=== PATIENT | female | born 1970 | race Caucasian/White ===

== ENCOUNTER 2016-04-06 08:32 | Inpatient (IN) | payer OTHER ==
[~2016-04-06] VITALS: Ht 165.1 cm; Wt 88.6 kg
--- NOTE | 2016-04-06 09:04 | EKG ---
[facility] [address] [place] [address] Test Date: 2016-04-06 Test Time: 08:46:21 Pat Name: SU PURCELL Department: Room: Gender: F Labor Specialist: : 1970 Requested By: JH NUNEZ Order Number: [id number] Reading MD: Makenzie Esteves Measurements Intervals [place] Rate: 76 P: 41 [place]: 178 QRS: -13 QRSD: 116 T: 10 QT: 450 QTc: 511 Interpretive Statements SINUS RHYTHM LEFTWARD AXIS QRS(T) CONTOUR ABNORMALITY CONSIDER ANTEROSEPTAL MYOCARDIAL DAMAGE PROLONGED QT RI6.01 Unconfirmed report No previous ECG available for comparison Electronically Signed On 04-08-2016 20:15:45 MD ALLERGY IMMUNOLOGY by Makenzie Esteves
--- NOTE | 2016-04-06 09:05 | PHYS DOC ---
Adult General Chief Complaint Chief Complaint: CHEST PAIN-CARDIAC NATURE HPI HPI Patient is a 45 year old female presents emergency room via EMS from a local [facility] facility with a complaint of central chest pain that does not radiate. Patient reports his pain began at approximately 6:30 this morning. Patient states that she initially got up this morning and was having no problems. She breakfast and at approximately 6:15, she threw up. She states that she went back to her cell to lay down and began experiencing the chest pain. She denies shortness of breath. She denies any provocative or palliative maneuvers. She denies palpitations, exertional dyspnea, orthopnea or PND. Patient denies any history of cardiac problems. She denies any history of lung disease. She does have a history of hypertension. She does not have a history of hypercholesterolemia or diabetes. Patient also has a history of seizures when she takes multiple seizure medications. Patient also has a history of problems with hypokalemia. She is currently taking both Lasix and Maxide for management of blood pressure. Patient denies any preceding illnesses before the episode this morning. Patient states that she typically feels this way for potassium level gets low. Patient's family history is negative for cardiac disease at or before the age of 50. She has no personal history of PEs or DVTs/coagulopathies. She denies any known family history of the same. According to EMS, patient had a "seizure" in route to this facility. She did receive some intranasal Versed. There was no reported loss of bowel or bladder control. There is no reported secondary injuries to the "seizure". There is no report of a post ictal state after this "seizure". Review of Systems Review of Systems Constitutional: Denies fever or chills [] Eyes: Denies change in visual acuity, redness, or eye pain [] HENT: Denies nasal congestion or sore throat [] Respiratory: Denies cough or shortness of breath [] Cardiovascular: No additional information not addressed in HPI [] GI: Denies abdominal pain, nausea, vomiting, bloody stools or diarrhea [] : Denies dysuria or hematuria [] Musculoskeletal: Denies back pain or joint pain [] Integument: Denies rash or skin lesions [] Neurologic: Denies headache, focal weakness or sensory changes [] Endocrine: Denies polyuria or polydipsia [] Current Medications Current Medications Current Medications Medications (Trade) Dose Ordered Sig/Alexandra Start Time Stop Time Status Last Admin Dose Admin Acetaminophen (Tylenol) 650 mg 1X ONCE 04/06/16 13:15 04/06/16 13:16 DC 04/06/16 14:13 650 MG Oxcarbazepine (Trileptal) 300 mg 1X ONCE 04/06/16 13:15 04/06/16 13:16 DC 04/06/16 14:10 300 MG Potassium Chloride (Klor-Con) 40 meq 1X ONCE 04/06/16 12:45 04/06/16 12:46 DC Allergies Allergies Allergies Coded Allergies Type Severity Reaction Last Updated Verified horseradish Allergy Severe Anaphylaxis 04/06/16 Yes mushroom Allergy Severe Anaphylaxis 04/06/16 Yes Physical Exam Physical Exam Constitutional: Well developed, well nourished, no acute distress, non-toxic appearance. Patient reports she is currently pain-free. HENT: Normocephalic, atraumatic, bilateral external ears normal, oropharynx moist, no oral exudates, nose normal. [] Eyes: PERRLA, EOMI, conjunctiva normal, no discharge. [] Neck: Normal range of motion, no tenderness, supple, no stridor. [] Cardiovascular:Heart rate 82 with regular rhythm, no murmur there is no JVD or peripheral edema. PMI is not displaced. Lungs & Thorax: There is no evidence of respiratory distress or respiratory fatigue. Lung sounds are clear to auscultation bilaterally. Abdomen: Abdomen is soft and nondistended. There are normoactive bowel sounds in all 4 quadrants. There is no palpable defect to the abdominal wall or pulsatile mass. There is no focal area of tenderness. There is no rebound or guarding. Skin: Warm, dry, no erythema, no rash. [] Back: No tenderness, no CVA tenderness. [] Extremities: No tenderness, no cyanosis, no clubbing, ROM intact, no edema. [] Neurologic: Alert and oriented X 3, normal motor function, normal sensory function, no focal deficits noted. [] Psychologic: Affect normal, judgement normal, mood normal. [] Current Patient Data Vital Signs Vital Signs Date Time Temp Pulse Resp B/P Pulse Ox O2 Delivery O2 Flow Rate FiO2 04/06/16 10:15 66 21 107/65 96 Room Air 04/06/16 08:42 98.1 98.1 Lab Values Laboratory Tests Test 04/06/16 09:55 04/06/16 12:20 04/06/16 13:55 White Blood Count 8.0x10^3/uL (4.0-11.0) Red Blood Count 3.50x10^6/uL (3.50-5.40) Hemoglobin 11.4g/dL (12.0-15.5) L Hematocrit 31.8% (36.0-47.0) L Mean Corpuscular Volume 91fL (79-100) Mean Corpuscular Hemoglobin 33pg (25-35) Mean Corpuscular Hemoglobin Concent 36g/dL (31-37) Red Cell Distribution Width 13.3% (11.5-14.5) Platelet Count 288x10^3/uL (140-400) Neutrophils (%) (Auto) 72% (31-73) Lymphocytes (%) (Auto) 22% (24-48) L Monocytes (%) (Auto) 6% (0-9) Eosinophils (%) (Auto) 1% (0-3) Basophils (%) (Auto) 0% (0-3) Neutrophils # (Auto) 5.7x10^3uL (1.8-7.7) Lymphocytes # (Auto) 1.7x10^3/uL (1.0-4.8) Monocytes # (Auto) 0.5x10^3/uL (0.0-1.1) Eosinophils # (Auto) 0.0x10^3/uL (0.0-0.7) Basophils # (Auto) 0.0x10^3/uL (0.0-0.2) Prothrombin Time 12.5SEC (11.7-14.0) Prothrombin Time INR 1.0 (0.8-1.1) Sodium Level 134mmol/L (136-145) L 131mmol/L (136-145) L Potassium Level 2.7mmol/L (3.5-5.1) *L 2.7mmol/L (3.5-5.1) *L Chloride Level 95mmol/L (98-107) L 94mmol/L (98-107) L Carbon Dioxide Level 29mmol/L (21-32) 27mmol/L (21-32) Anion Gap 10 (6-14) 16mmol/L (6-14) H 10 (6-14) Blood Urea Nitrogen 13mg/dL (7-20) 14mg/dL (7-20) Creatinine 0.7mg/dL (0.6-1.0) 0.7mg/dL (0.6-1.0) Estimated GFR (Cockcroft-Gault) 90.9 90.9 Glucose Level 94mg/dL (70-99) 108mg/dL (70-99) H 112mg/dL (70-99) H Calcium Level 8.6mg/dL (8.5-10.1) 8.7mg/dL (8.5-10.1) Magnesium Level 1.9mg/dL (1.8-2.4) Total Bilirubin 0.2mg/dL (0.2-1.0) Direct Bilirubin 0.1mg/dL (0.0-0.2) Aspartate Amino Transferase (AST) 14U/L (15-37) L Alanine Aminotransferase (ALT) 21U/L (14-59) Alkaline Phosphatase 126U/L (46-116) H Creatine Kinase 63U/L (26-192) Creatine Kinase MB (Mass) < 0.5ng/mL (0.0-3.6) Creatine Kinase MB Relative Index % (0-4) Troponin I Quantitative < 0.017ng/mL (0.000-0.055) CP-Wbx-K-Type Natriuretic Peptide 111pg/mL (0-124) Total Protein 6.0g/dL (6.4-8.2) L Albumin 3.6g/dL (3.4-5.0) Lipase 91U/L (73-393) POC Hemoglobin 10.5g/dL (12-15) L POC Hematocrit 31% (36-40) L POC Sodium 128mmol/L (135-145) L POC Potassium 2.5mmol/L (3.5-5.0) L POC Chloride 90mmol/L (98-110) L POC Total CO2 25mmol/L (23-32) POC Blood Urea Nitrogen 12mg/dL (8-26) POC Creatinine 0.7mg/dL (0.5-1.4) POC Ionized Calcium (Trace) 1.10mmol/L (1.13-1.32) L Laboratory Tests 04/06/16 09:55 Laboratory Tests 04/06/16 09:55 04/06/16 12:20 04/06/16 13:55 EKG EKG Twelve-lead EKG was performed at 0 846 that shows a normal sinus rhythm with a heart rate of 76 bpm. [place] interval is 178 ms with a QRS duration of 160 ms and a QT duration of 511 ms. There is no [address] elevation or depression. There is no bundle-branch block. Radiology/Procedures Radiology/Procedures Portable AP chest was performed with adequate technique and interpreted by the radiologist. There is no evidence of acute thoracic process. There is no evidence of pulmonary vascular congestion, pneumonia or pneumothorax. Course & Med Decision Making Course & Med Decision Making Patient's overall care and clinical decision was delayed in the emergency department as pharmacy staff did not dispense 80 mEq of potassium as a original order. After patient received 2 separate doses of 40 mEq of potassium by mouth, her potassium level was rechecked by the lab. It remained at 2.7. Patient has had an otherwise uncomplicated stay here in the emergency department. She's had no other episodes or complaints of chest pain. She's been maintained on the property assessment monitor and has not displayed any cardiac conduction aberrancy. She's had no episodes of vomiting. Case was staffed with Dr. Landis. He agrees, at this time, that patient should be admitted. He states that he would staff this case with the hospitalist and orders will be written to admit the patient. Dragon Disclaimer Dragon Disclaimer This electronic medical record was generated, in whole or in part, using a voice recognition dictation system. Departure Departure Impression: Primary Impression: Hypokalemia Additional Impression: Chest pain Disposition: ADMITTED INPATIENT Admitting Physician: Other (Dr Bender) Condition: STABLE Patient Instructions: Chest Pain (Nonspecific), [id number], Hypokalemia-Brief Additional Instructions: 1. Chest x-ray, EKG and cardiac enzymes today are normal. Potassium level was 2.7. He received 80 mEq of potassium here and your daily potassium dosage will be increased for the next 4 days. 2. Evaluating your medications, specifically Lasix and Maxide may be needed as potassium is lost with the Lasix. 3. Follow-up with your current primary care provider early next week for reevaluation and potassium level recheck. Problem Qualifiers JH NUNEZ Apr 06, 2016 09:05
--- NOTE | 2016-04-06 09:31 | RAD ---
Portable chest, 04/06/2016: History: Chest pain The heart size and pulmonary vascularity are normal. The lungs are clear. There is no evidence of pleural fluid. Moderate spurring is present in the spine. IMPRESSION: No acute cardiopulmonary abnormality is detected.
[2016-04-06 10:22] LABS: BASO % 0 % (0-3); EOS % 1 % (0-3); HEMATOCRIT 31.8 % (36.0-47.0); HEMOGLOBIN 11.4 g/dL (12.0-15.5); LYMPH # 1.7 x10^3/uL (1.0-4.8); LYMPH % 22 % (24-48); MEAN CORPUSCULAR HEMOGLOBIN 33 pg (25-35); MEAN CORPUSCULAR HGB CONC 36 g/dL (31-37); MEAN CORPUSCULAR VOLUME 91 fL (79-100); MONO % 6 % (0-9); NEUT % 72 % (31-73); PLATELET COUNT 288 x10^3/uL (140-400); RED CELL DISTRIBUTION WIDTH 13.3 % (11.5-14.5)
[2016-04-06 10:38] LABS: PROTHROMBIN TIME PATIENT 12.5 SEC (11.7-14.0)
[2016-04-06 10:46] LABS: ALBUMIN 3.6 g/dL (3.4-5.0); CALCIUM 8.6 mg/dL (8.5-10.1); CREATININE 0.7 mg/dL (0.6-1.0); DIRECT BILIRUBIN 0.1 mg/dL (0.0-0.2); GFR 90.9; MAGNESIUM 1.9 mg/dL (1.8-2.4); TOTAL BILIRUBIN 0.2 mg/dL (0.2-1.0)
[2016-04-06 10:48] LABS: POTASSIUM 2.7 mmol/L (3.5-5.1)
[2016-04-06 10:49] LABS: CKMB MASS < 0.5 ng/mL (0.0-3.6); CREATINE KINASE 63 U/L (26-192)
[2016-04-06] MEDS: POTASSIUM CHLORIDE 20 MEQ TABLET.ER. PO SCH ×2 (11:38→12:42)
--- NOTE | 2016-04-06 11:43 | ACF ---
Admission Forms Criteria HYPONATREMIA; HYPERNATREMIA; HYPOKALEMIA; HYPERKALEMIA; HYPOCALCEMIA; HYPERCALCEMIA Clinical Indications for Inpatient Care (Place 'X' for any and all applicable criteria): Ongoing inpatient care may be indicated for ANY ONE of the following [G](1)(2)(3 )(5): [ ]I. Hyponatremia with ANY ONE of the following: [ ]a) Sodium less than 130 mEq/L (mmol/L) (new) (6)(22) [ ]b) Sodium less than 135 mEq/L (mmol/L) with ANY ONE of the following: [ ]i) Severe medical etiology requiring inpatient management (eg, heart failure, hypovolemia) [ ]ii) Altered mental status [ ]iii) Seizures [ ]II. Hypernatremia with ANY ONE of the following: [ ]a) Sodium greater than 155 mEq/L (mmol/L) [ ]b) Sodium greater than 150 mEq/L (mmol/L) with ANY ONE of the following: [ ] i) Altered mental status [ ]ii) Seizures [ ]iii) Severe medical etiology (eg, hypovolemia, diabetes insipidus) [ ]iv) Severe weakness [ ]v) Severe medical etiology (eg, hemolysis, infection, drug overdose) [X]III. Hypokalemia with ANY ONE of the following: [ ]a) Potassium less than 2.5 mEq/L (mmol/L) despite outpatient and emergency treatment [X]b) Potassium less than 3.0 mEq/L (mmol/L) with ANY ONE of the following: [ ]i) Weakness [ ]ii) Cardiac abnormality (eg, arrhythmia, conduction disturbance) [ ]iii) Cardiac ischemia [ ]iv) Ileus [ ]v) Ongoing medical cause requiring inpatient management. ( e.g., acute renal wasting, SIADH) [X]vi) Other severe symptoms [ ] IV. Hyperkalemia with ANY ONE of the following: [ ]a) Potassium greater than 6.5 mEq/L (mmol/L) [ ]b) Potassium greater than 5 mEq/L (mmol/L) with ANY ONE of the following: [ ]i) Severe ECG findings [H] [ ]ii) Acute worsening of renal failure (creatinine greater than 2.5 mg/dL (221 micromoles/L) or significant elevation for age and size) [ ] V. Hypocalcemia with ANY ONE of the following: [ ]a) Calcium less than 7 mg/dL (1.75 mmol/L) despite outpatient and emergency treatment(19) [ ]b) Calcium less than 8 mg/dL (2 mmol/L) with significant symptoms or findings; examples include: [ ]i) Cardiac abnormality (eg, arrhythmia or conduction disturbance) [ ]ii) Altered mental status [ ]iii) Seizures [ ]iv) Breathing difficulty [ ]v) Muscle spasms [ ]. Hypercalcemia with ANY ONE of the following: [ ]a) Calcium greater than 14 mg/dL (3.5 mmol/L) [ ]b) Calcium greater than 12 mg/dL (3 mmol/L) with ANY ONE of the following: [ ]i) Significant dehydration or hypovolemia as indicated by ANY ONE of the following(2): [ ]1. Clinically significant dehydration as indicated by ANY ONE of the following: [ ]A. Acute loss of weight from baseline (5% of body weight in adults, 9% in pediatric patients) [ ]B. Hemodynamic instability [ ]C. Acute renal failure [ ]D. Serum sodium greater than 150 mEq/L (mmol/L) [ ]2) Dehydration that is persistent indicated by ALL of the following: [ ]A. Oral rehydration therapy not tolerated or insufficient to adequately correct dehydration [ ]B. Appropriate intravenous treatment (eg, fluids ) does not readily correct dehydration ie, after 12 to 24 hours of treatment) [ ]ii) Significant symptoms or findings; examples include: [ ]1) Altered mental status [ ]2) Cardiac abnormality (eg, arrhythmia, conduction disturbance) [ ]3) Cardiac abnormality (eg, arrhythmia, conduction disturbance) The original [facility] content created by [facility] has been revised. The portions of the content which have been revised are identified through the use of italic text or in bold, and [facility] has neither reviewed nor approved the modified material. All other unmodified content is copyright [facility] [employer] Please see references footnoted in the original [facility] [employer] edition 2016 Admission Criteria Met?: Yes POLLO HERNANDEZ Apr 06, 2016 11:42 TORIBIO PAZ MD Apr 09, 2016 12:46
[2016-04-06] MEDS ORDERED: FURO20TA3 PO (11:48)
[2016-04-06] MEDS ORDERED: MONT10TA9 PO (11:48)
[2016-04-06] MEDS ORDERED: OXCA300T PO (11:49)
[2016-04-06] MEDS ORDERED: POTA20TA4 PO (11:51)
[2016-04-06] MEDS ORDERED: [UNRECOGNIZED DRUG - CODE] (11:57)
[2016-04-06] MEDS ORDERED: Phenytoin (11:59)
[2016-04-06 12:26] LABS: POTASSIUM ISTAT 2.5 mmol/L (3.5-5.0)
[2016-04-06] MEDS ORDERED: POTASSIUM CHLORIDE 20 MEQ TABLET.ER. PO ONE ×2 (12:45→22:00)
[2016-04-06] MEDS ORDERED: OXCARBAZEPINE 300 MG TABLET. PO ONE (13:15)
[2016-04-06] MEDS ORDERED: ACETAMINOPHEN 325 MG TABLET. PO ONE (13:15)
[2016-04-06 14:14] LABS: CALCIUM 8.7 mg/dL (8.5-10.1); CREATININE 0.7 mg/dL (0.6-1.0); GFR 90.9
[2016-04-06 14:19] LABS: POTASSIUM 2.7 mmol/L (3.5-5.1)
[2016-04-06 17:43] VITALS: BP 103/68
[2016-04-06 17:44] VITALS: BP 103/68
[2016-04-06] MEDS ORDERED: TOPI100T90 PO (17:57)
[2016-04-06] MEDS ORDERED: TRIA1CAP3 PO (17:57)
[2016-04-06] MEDS ORDERED: PHEN100C PO (17:57)
[2016-04-06 19:30] VITALS: BP 101/69
[2016-04-06] MEDS: TRIAMTERENE/HCTZ 37.5/25MG TABLET. PO SCH (21:00)
[2016-04-06] MEDS: TOPIRAMATE 100 MG TABLET. PO SCH (21:17)
[2016-04-06] MEDS: OXCARBAZEPINE 300 MG TABLET. PO SCH (21:18)
[2016-04-06] MEDS: MONTELUKAST SODIUM 10 MG TABLET. PO SCH (21:18)
[2016-04-06] MEDS: PHENYTOIN SODIUM EXTENDED 100 MG CAPSULE PO SCH (21:18)
[2016-04-06] MEDS: POTASSIUM CHLORIDE 10MEQ 100 ML IV SCH (22:19)
[2016-04-06 23:35] VITALS: BP 97/63
--- NOTE | 2016-04-06 23:58 | HP ---
ADMIT DATE: 04/06/2016 CHIEF COMPLAINT: Chest pain, abdominal pain, nausea, vomiting. HISTORY OF PRESENT ILLNESS: The patient is a 45-year-old inmate at [facility], who presented to the Emergency Room via EMS after complaining of central chest pain as well as vomiting x 1. The patient relates that she got up this morning, ate breakfast, but when she came back to herself, started having chest pain, vomited x 1 and felt better afterwards. She denied any shortness of breath, radiation of the chest pain at that time or any other issues. She states that her chest pain essentially started in her lower right chest just laterally to the sternal border, traversed the sternum and zigzag back to her upper right chest and back behind her shoulder blade. At times, she also had tingling in the medial 3 fingers of both hands. This spontaneously resolved. Symptoms currently are controlled. She denies any ongoing nausea, vomiting, diaphoresis, fevers, chills, or other symptoms. In the EMS, she had a reported seizure for which she received intranasal Versed. No associated symptoms were noted including no postictal state, no loss of bowel or bladder control. The patient relates that she has a longstanding history of seizures, which have been getting rather frequent ever since she has been incarcerated for the past 11 months. She reports about one seizure a month, whereas prior on the same drug regimen, she had been seizure-free for 6 years. In the Emergency Room, she was found with a potassium of 2.7. She is on both Lasix as well as hydrochlorothiazide for lower extremity swelling, worse on the right than on the left. The physician at custodial had actually cut her Lasix dose in half last week. PAST MEDICAL HISTORY: Seizure disorder and hypertension. FAMILY HISTORY: Positive for CAD. Father at age 58. SOCIAL HISTORY: Has been in custodial for the past 11 months. No toxic habits. Never smoked. ALLERGIES: No known drug allergies. MEDICATIONS: MAR reconciled with home medications. REVIEW OF SYSTEMS: Positive as per HPI. Rest of organ system review is completely negative. PHYSICAL EXAMINATION: VITAL SIGNS: From today show a blood pressure of 101/69, heart rate at 63, respiratory rate at 18. She is afebrile. GENERAL: This is an obese 45-year-old woman, alert and oriented, in no acute distress. HEENT: Shows no scleral icterus. NECK: Supple without any lymphadenopathy or JVD. LUNGS: Clear to auscultation bilaterally. HEART: Has regular rate and rhythm without any murmurs. ABDOMEN: Has positive bowel sounds. Mild tenderness to palpation in the right upper quadrant and subxiphoid/epigastric area. EXTREMITIES: Show 1+ edema in the right, none in the left. Compression stockings on both legs. SKIN: Warm, soft and dry without any rash. LABORATORY DATA: CBC from today shows a WBC of 8.0, hemoglobin of 11.4, platelets of 288. Chemistries with an initial BUN and creatinine of 13 and 0.7, has been stable on repeat; potassium at 2.7 with essentially no improvement after 80 mEq of potassium in the ER; sodium at 131. LFTs within normal limits, say for minimally elevated alkaline phosphatase at 126, magnesium is at 1.9, negative troponins. RADIOGRAPHIC STUDIES: Chest x-ray shows normal heart and pulmonary vascularity. Lungs are clear. ASSESSMENT AND PLAN: The patient is a 45-year-old woman who is admitted with nausea, vomiting, abdominal pain as well as chest pain and low potassium. I suspect actually she may have gallbladder disease. Nevertheless, given the chest pain, we will rule out acute coronary syndrome with serial enzymes and EKGs. We will obtain ultrasound of the liver in the morning to evaluate for stones. May need HIDA scan down the road. Potassium is indeed critical. We will hold her Lasix for the time being. We will replete potassium aggressively p.o. Her magnesium interestingly is perfectly normal. Continue to monitor her electrolytes. The patient does have a history of seizure disorder and is on dual regimen. We will obtain phenytoin level. Suspect the increased frequency of her seizure reports may be more psychosomatic as she reports seizure activity increases with loud noise and bright lights. TORIBIO PAZ MD DR: MATTHIAS/sonja JOB#: [id number] / [id number] PATI
[2016-04-07] MEDS: POTASSIUM CHLORIDE 10MEQ 100 ML IV SCH ×3 (01:55→04:18)
[2016-04-07 03:30] VITALS: BP 109/71
[2016-04-07 05:36] LABS: CALCIUM 8.3 mg/dL (8.5-10.1); CREATININE 0.7 mg/dL (0.6-1.0); GFR 90.9; POTASSIUM 3.5 mmol/L (3.5-5.1)
[2016-04-07 07:00] VITALS: BP 97/58
[2016-04-07] MEDS: ACETAMINOPHEN 325 MG TABLET. PO PRN ×2 (07:45→17:38)
[2016-04-07] MEDS: POTASSIUM CHLORIDE 20 MEQ TABLET.ER. PO SCH (07:46)
[2016-04-07] MEDS: TOPIRAMATE 100 MG TABLET. PO SCH ×2 (07:46→20:38)
[2016-04-07] MEDS: TRIAMTERENE/HCTZ 37.5/25MG TABLET. PO SCH ×2 (07:47→20:42)
[2016-04-07] MEDS: OXCARBAZEPINE 300 MG TABLET. PO SCH ×2 (07:47→20:37)
--- NOTE | 2016-04-07 08:10 | RAD ---
Right upper quadrant abdominal ultrasound, 04/07/2016: History: Right upper quadrant pain The gallbladder is within normal limits in size. It contains a single 2.6 cm calculus. The gallbladder devi are not thickened. The patient was reportedly tender to transducer pressure over the gallbladder. No bile duct dilatation is seen. The liver is enlarged measuring 21 cm in craniocaudad extent. No hepatic mass is seen. The visualized portions of the pancreas and right kidney are unremarkable. IMPRESSION: 1. Cholelithiasis with a positive sonographic Mata's sign. 2. Hepatomegaly
[2016-04-07] MEDS ORDERED: FUROSEMIDE 20 MG TABLET PO SCH (09:00)
[2016-04-07 11:00] VITALS: BP 97/60
[2016-04-07 15:00] VITALS: BP 101/65
--- NOTE | 2016-04-07 16:14 | EKG ---
[facility] [address] [place] [address] Test Date: 2016-04-07 Test Time: 16:06:50 Pat Name: SU PURCELL Department: Room: [facility] Gender: F Intranet Specialist: : 1970 Requested By: TORIBIO PAZ Order Number: [id number] Reading MD: Measurements Intervals [place] Rate: 59 P: 42 [place]: 164 QRS: -4 QRSD: 98 T: 13 QT: 462 QTc: 462 Interpretive Statements SINUS RHYTHM LEFTWARD AXIS OTHERWISE NORMAL ECG RI6.01 Unconfirmed report No previous ECG available for comparison
--- NOTE | 2016-04-07 17:40 | PDOC ---
PROGRESS NOTES Chief Complaint Chief Complaint Chest pain Epigastric pain ASSESSMENT AND PLAN: 1. CP: noncardiac. with neg W/U 2. epigastric/RUQ pain: US with cholelithiasis, + Mata's. surg consult 4. Hypokalemia: resolving. monitor closely, replete as indicated. hold lasix for now Vitals Vitals Vital Signs Date Time Temp Pulse Resp B/P Pulse Ox O2 Delivery O2 Flow Rate FiO2 04/07/16 15:00 98.1 61 18 101/65 98 Room Air 98.1 Physical Exam General: Alert, Oriented X3, Cooperative Heart: Regular rate Lungs: Clear Abdomen: Normal bowel sounds, Other (RUQ/epigastric TTP) Extremities: No clubbing, Other (edema L LE, chronic) Labs LABS Laboratory Tests Test 04/07/16 05:00 Sodium Level 134mmol/L (136-145) Potassium Level 3.5mmol/L (3.5-5.1) Chloride Level 98mmol/L (98-107) Carbon Dioxide Level 27mmol/L (21-32) Anion Gap 9 (6-14) Blood Urea Nitrogen 12mg/dL (7-20) Creatinine 0.7mg/dL (0.6-1.0) Estimated GFR (Cockcroft-Gault) 90.9 Glucose Level 81mg/dL (70-99) Calcium Level 8.3mg/dL (8.5-10.1) Troponin I Quantitative < 0.017ng/mL (0.000-0.055) Phenytoin (Dilantin) Level 6.6mcg/mL (10.0-20.0) Phenytoin Last Dose Date 04/06/16 Phenytoin Last Dose Time 2100 Review of Systems Review of Systems episode of "CP" this PM, resolved. tolerating PO Assessment and Plan Assessmemt and Plan Problems: Comment Review of Relevant I have reviewed the following items michaela (where applicable) has been applied. Labs Laboratory Tests Test 04/06/16 09:55 04/06/16 12:20 04/06/16 13:55 04/06/16 17:20 White Blood Count 8.0x10^3/uL (4.0-11.0) Red Blood Count 3.50x10^6/uL (3.50-5.40) Hemoglobin 11.4g/dL (12.0-15.5) Hematocrit 31.8% (36.0-47.0) Mean Corpuscular Volume 91fL (79-100) Mean Corpuscular Hemoglobin 33pg (25-35) Mean Corpuscular Hemoglobin Concent 36g/dL (31-37) Red Cell Distribution Width 13.3% (11.5-14.5) Platelet Count 288x10^3/uL (140-400) Neutrophils (%) (Auto) 72% (31-73) Lymphocytes (%) (Auto) 22% (24-48) Monocytes (%) (Auto) 6% (0-9) Eosinophils (%) (Auto) 1% (0-3) Basophils (%) (Auto) 0% (0-3) Neutrophils # (Auto) 5.7x10^3uL (1.8-7.7) Lymphocytes # (Auto) 1.7x10^3/uL (1.0-4.8) Monocytes # (Auto) 0.5x10^3/uL (0.0-1.1) Eosinophils # (Auto) 0.0x10^3/uL (0.0-0.7) Basophils # (Auto) 0.0x10^3/uL (0.0-0.2) Prothrombin Time 12.5SEC (11.7-14.0) Prothromb Time International Ratio 1.0 (0.8-1.1) Sodium Level 134mmol/L (136-145) 131mmol/L (136-145) Potassium Level 2.7mmol/L (3.5-5.1) 2.7mmol/L (3.5-5.1) Chloride Level 95mmol/L (98-107) 94mmol/L (98-107) Carbon Dioxide Level 29mmol/L (21-32) 27mmol/L (21-32) Anion Gap 10 (6-14) 16mmol/L (6-14) 10 (6-14) Blood Urea Nitrogen 13mg/dL (7-20) 14mg/dL (7-20) Creatinine 0.7mg/dL (0.6-1.0) 0.7mg/dL (0.6-1.0) Estimated GFR (Cockcroft-Gault) 90.9 90.9 Glucose Level 94mg/dL (70-99) 108mg/dL (70-99) 112mg/dL (70-99) Calcium Level 8.6mg/dL (8.5-10.1) 8.7mg/dL (8.5-10.1) Magnesium Level 1.9mg/dL (1.8-2.4) Total Bilirubin 0.2mg/dL (0.2-1.0) Direct Bilirubin 0.1mg/dL (0.0-0.2) Aspartate Amino Transf (AST/SGOT) 14U/L (15-37) Alanine Aminotransferase (ALT/SGPT) 21U/L (14-59) Alkaline Phosphatase 126U/L (46-116) Creatine Kinase 63U/L (26-192) Creatine Kinase MB (Mass) < 0.5ng/mL (0.0-3.6) Creatine Kinase MB Relative Index % (0-4) Troponin I Quantitative < 0.017ng/mL (0.000-0.055) QA-Nks-R-Type Natriuretic Peptide 111pg/mL (0-124) Total Protein 6.0g/dL (6.4-8.2) Albumin 3.6g/dL (3.4-5.0) Lipase 91U/L (73-393) Bedside Hemoglobin 10.5g/dL (12-15) Bedside Hematocrit 31% (36-40) Bedside Sodium 128mmol/L (135-145) Bedside Potassium 2.5mmol/L (3.5-5.0) Bedside Chloride 90mmol/L (98-110) Bedside Total CO2 25mmol/L (23-32) Bedside Blood Urea Nitrogen 12mg/dL (8-26) Bedside Creatinine 0.7mg/dL (0.5-1.4) Bedside Ionized Calcium (Trace) 1.10mmol/L (1.13-1.32) Nasal Screen MRSA (PCR) Negative (Negative) Test 04/07/16 05:00 Sodium Level 134mmol/L (136-145) Potassium Level 3.5mmol/L (3.5-5.1) Chloride Level 98mmol/L (98-107) Carbon Dioxide Level 27mmol/L (21-32) Anion Gap 9 (6-14) Blood Urea Nitrogen 12mg/dL (7-20) Creatinine 0.7mg/dL (0.6-1.0) Estimated GFR (Cockcroft-Gault) 90.9 Glucose Level 81mg/dL (70-99) Calcium Level 8.3mg/dL (8.5-10.1) Troponin I Quantitative < 0.017ng/mL (0.000-0.055) Phenytoin (Dilantin) Level 6.6mcg/mL (10.0-20.0) Phenytoin Last Dose Date 04/06/16 Phenytoin Last Dose Time 2100 Laboratory Tests Test 04/07/16 05:00 Sodium Level 134mmol/L (136-145) Potassium Level 3.5mmol/L (3.5-5.1) Chloride Level 98mmol/L (98-107) Carbon Dioxide Level 27mmol/L (21-32) Anion Gap 9 (6-14) Blood Urea Nitrogen 12mg/dL (7-20) Creatinine 0.7mg/dL (0.6-1.0) Estimated GFR (Cockcroft-Gault) 90.9 Glucose Level 81mg/dL (70-99) Calcium Level 8.3mg/dL (8.5-10.1) Troponin I Quantitative < 0.017ng/mL (0.000-0.055) Phenytoin (Dilantin) Level 6.6mcg/mL (10.0-20.0) Phenytoin Last Dose Date 04/06/16 Phenytoin Last Dose Time 2100 Medications Current Medications Potassium Chloride (Klor-Con) 40 meq Q1H PO Last administered on 04/06/16 12: 42; Start 04/06/16 at 11:30; Stop 04/06/16 at 12:31; Status DC Potassium Chloride (Klor-Con) 40 meq 1X ONCE PO ; Start 04/06/16 at 12:45; Stop 04/06/16 at 12:46; Status DC Oxcarbazepine (Trileptal) 300 mg 1X ONCE PO Last administered on 04/06/16 14: 10; Start 04/06/16 at 13:15; Stop 04/06/16 at 13:16; Status DC Acetaminophen (Tylenol) 650 mg 1X ONCE PO Last administered on 04/06/16 14:13 ; Start 04/06/16 at 13:15; Stop 04/06/16 at 13:16; Status DC Furosemide (Lasix) 20 mg DAILY PO ; Start 04/07/16 at 09:00; Stop 04/07/16 at 09 :00; Status DC Montelukast Sodium (Singulair) 10 mg HS PO Last administered on 04/06/16 21:18 ; Start 04/06/16 at 21:00 Oxcarbazepine (Trileptal) 300 mg BID PO Last administered on 04/07/16 07:47; Start 04/06/16 at 21:00 Phenytoin Sodium (Dilantin) 400 mg HS PO Last administered on 04/06/16 21:18; Start 04/06/16 at 21:00 Potassium Chloride (Klor-Con) 20 meq DAILY08 PO Last administered on 04/07/16 07:46; Start 04/07/16 at 08:00 Topiramate (Topamax) 200 mg BID PO Last administered on 04/07/16 07:46; Start 04/06/16 at 21:00 Triamterene/HCTZ 1 tab 1 tab BID PO ; Start 04/06/16 at 21:00 Potassium Chloride (KCl Premix 10meq) 100 ml @ 100 mls/hr Q1H IV Last administered on 04/07/16 04:18; Start 04/06/16 at 22:00; Stop 04/07/16 at 01:59 ; Status DC Potassium Chloride (Klor-Con) 40 meq 1X ONCE PO Last administered on 22:18; Start 04/06/16 at 22:00; Stop 04/06/16 at 22:01; Status DC Acetaminophen (Tylenol) 650 mg PRN Q6HRS PRN PO MILD PAIN / TEMP Last administered on 04/07/16 07:45; Start 04/07/16 at 07:30 Active Scripts Active Reported Triamterene-Hctz 37.5-25 Mg Cp (Triamterene/Hydrochlorothiazid) 1 Each Capsule 1 Cap PO BID Topiramate 100 Mg Tablet 2 Tab PO BID Dilantin (Phenytoin Sodium Extended) 100 Mg Capsule 4 Cap PO HS Klor-Con M20 (Potassium Chloride) 20 Meq Tab.er.prt 20 Meq PO DAILY Oxcarbazepine 300 Mg Tablet 1 Tab PO BID Montelukast Sodium Tablet (Montelukast Sodium) 10 Mg Tablet 10 Mg PO HS Furosemide 20 Mg Tablet 20 Mg PO DAILY Vitals/I & O Vital Sign - Last 24 Hours 04/06/16 04/06/16 04/06/16 04/06/16 17:43 17:44 19:30 20:00 Temp 97.7 97.7 97.6 97.7 97.7 97.6 Pulse 58 58 63 Resp 18 B/P 103/68 103/68 101/69 Pulse Ox 96 96 100 O2 Delivery Room Air Room Air Room Air 04/06/16 04/07/16 04/07/16 04/07/16 23:35 03:30 07:00 08:00 Temp 97.6 97.9 97.9 97.6 97.9 97.9 Pulse 59 57 55 Resp 16 16 B/P 97/63 109/71 97/58 Pulse Ox 97 96 97 O2 Delivery Room Air Room Air Room Air Room Air 04/07/16 04/07/16 11:00 15:00 Temp 97.9 98.1 97.9 98.1 Pulse 60 61 Resp 18 B/P 97/60 101/65 Pulse Ox 97 98 O2 Delivery Room Air Room Air Intake and Output 04/06/16 04/06/16 04/07/16 15:00 23:00 07:00 Intake Total 0 ml 0 ml Balance 0 ml 0 ml TORIBIO PAZ MD Apr 07, 2016 17:40
[2016-04-07 17:57] LABS: ALBUMIN 3.1 g/dL (3.4-5.0); DIRECT BILIRUBIN 0.1 mg/dL (0.0-0.2); TOTAL BILIRUBIN 0.2 mg/dL (0.2-1.0); TOTAL PROTEIN 5.5 g/dL (6.4-8.2)
[2016-04-07 19:00] VITALS: BP 108/72
[2016-04-07] MEDS ORDERED: CEFAZOLIN 2GM PREMIX 50 ML IV SCH (20:00)
[2016-04-07] MEDS: PHENYTOIN SODIUM EXTENDED 100 MG CAPSULE PO SCH (20:37)
[2016-04-07] MEDS: MONTELUKAST SODIUM 10 MG TABLET. PO SCH (20:38)
[2016-04-07 23:00] VITALS: BP 122/75
[2016-04-08] VITALS (10 sets, daily range): BP systolic 97–120; BP diastolic 51–72
[2016-04-08] MEDS: ACETAMINOPHEN 325 MG TABLET. PO PRN (04:28)
[2016-04-08] MEDS: POTASSIUM CHLORIDE 20 MEQ TABLET.ER. PO SCH (08:00)
--- NOTE | 2016-04-08 08:06 | PDOC2 ---
FRANNIE BUTLER DIRECTOR OF EXHIBIT DEVELOPMENT 04/08/16 0806: CONSULT Date of Consult Date of Consult DATE: 04/08/16 TIME: 07:59 Reason for Consult Reason for Consult: cholecystitis Referring Physician Referring Physician: ER Identification/Chief Complaint Chief Complaint abdominal pain Source Source: Chart review, Patient History of Present Illness Reason for Visit: Saturday started having epigastric pain that radiated up her chest, into her back on right side. Shortness of breathe from pain. She reports has had similar symptoms in the past. Associated nausea and emesis. No diarrhea, chronic constipation issues. No aggravating or alleviating factors Past Medical History Cardiovascular: HTN CENTRAL NERVOUS SYSTEM: Seizure GI: Irritable bowel disease Past Surgical History Past Surgical History: Appendectomy, Tonsillectomy, Hysterectomy Family History Family History: Other (noncontributory to current illness ) Social History No ALCOHOL: none Drugs: None Current Problem List Problem List Problems Medical Problems: (1) Chest pain Status: Acute (2) Hypokalemia Status: Acute (3) Low blood potassium Status: Acute Current Medications Current Medications Current Medications Potassium Chloride (Klor-Con) 40 meq Q1H PO Last administered on 04/06/16 12: 42; Start 04/06/16 at 11:30; Stop 04/06/16 at 12:31; Status DC Potassium Chloride (Klor-Con) 40 meq 1X ONCE PO ; Start 04/06/16 at 12:45; Stop 04/06/16 at 12:46; Status DC Oxcarbazepine (Trileptal) 300 mg 1X ONCE PO Last administered on 04/06/16 14: 10; Start 04/06/16 at 13:15; Stop 04/06/16 at 13:16; Status DC Acetaminophen (Tylenol) 650 mg 1X ONCE PO Last administered on 04/06/16 14:13 ; Start 04/06/16 at 13:15; Stop 04/06/16 at 13:16; Status DC Furosemide (Lasix) 20 mg DAILY PO ; Start 04/07/16 at 09:00; Stop 04/07/16 at 09 :00; Status DC Montelukast Sodium (Singulair) 10 mg HS PO Last administered on 04/07/16 20:38 ; Start 04/06/16 at 21:00 Oxcarbazepine (Trileptal) 300 mg BID PO Last administered on 04/07/16 20:37; Start 04/06/16 at 21:00 Phenytoin Sodium (Dilantin) 400 mg HS PO Last administered on 04/07/16 20:37; Start 04/06/16 at 21:00 Potassium Chloride (Klor-Con) 20 meq DAILY08 PO Last administered on 04/07/16 07:46; Start 04/07/16 at 08:00 Topiramate (Topamax) 200 mg BID PO Last administered on 04/07/16 20:38; Start 04/06/16 at 21:00 Triamterene/HCTZ 1 tab 1 tab BID PO ; Start 04/06/16 at 21:00 Potassium Chloride (KCl Premix 10meq) 100 ml @ 100 mls/hr Q1H IV Last administered on 04/07/16 04:18; Start 04/06/16 at 22:00; Stop 04/07/16 at 01:59 ; Status DC Potassium Chloride (Klor-Con) 40 meq 1X ONCE PO Last administered on 22:18; Start 04/06/16 at 22:00; Stop 04/06/16 at 22:01; Status DC Acetaminophen 650 mg 650 mg PRN Q6HRS PRN PO MILD PAIN / TEMP Last administered on 04/08/16 04:28; Start 04/07/16 at 07:30 Cefazolin Sodium/ Dextrose (Ancef 2gm Premix) 50 ml @ 100 mls/hr 1X PREOP IV ; Start 04/07/16 at 20:00; Stop 04/08/16 at 18:00 Active Scripts Active Reported Triamterene-Hctz 37.5-25 Mg Cp (Triamterene/Hydrochlorothiazid) 1 Each Capsule 1 Cap PO BID Topiramate 100 Mg Tablet 2 Tab PO BID Dilantin (Phenytoin Sodium Extended) 100 Mg Capsule 4 Cap PO HS Klor-Con M20 (Potassium Chloride) 20 Meq Tab.er.prt 20 Meq PO DAILY Oxcarbazepine 300 Mg Tablet 1 Tab PO BID Montelukast Sodium Tablet (Montelukast Sodium) 10 Mg Tablet 10 Mg PO HS Furosemide 20 Mg Tablet 20 Mg PO DAILY Allergies Allergies: Coded Allergies: horseradish (Verified Allergy, Severe, Anaphylaxis, 04/06/16) mushroom (Verified Allergy, Severe, Anaphylaxis, 04/06/16) ROS General: YES: Chills, Other (subjective fevers ) PSYCHOLOGICAL ROS: No: Anxiety Eyes: No Blurry vision, No Double vision HEENT: No: Heacaches, Sore Throat Hematological and Lymphatic: No: Bleeding Problems, Blood Clots Respiratory: YES: Shortness of breath, No: Cough Cardiovascular: yes Chest Pain, No Palpitations Gastrointestinal: Yes Other (see hpi) Genitourinary: No Dysuria, No Hematuria Musculoskeletal: No Joint Pain, No Muscle Pain Neurological: No Confusion, No Numbness/Tingling Skin: No Pruritus, No Rash Physical Exam General: Alert, Oriented X3, Cooperative, No acute distress HEENT: PERRLA, Mucous membr. moist/pink Lungs: Clear to auscultation, Normal air movement Heart: Regular rate, Normal S1, Normal S2, No murmurs Abdomen: Other (ND, RUQ and epigastric tenderness ) Extremities: No clubbing, No cyanosis Skin: No rashes, No breakdown Neuro: Normal speech, Sensation intact Psych/Mental Status: Mental status NL, Mood NL MUSCULOSKELETAL: No deformity, No swelling Vitals VITALS Vital Signs Date Time Temp Pulse Resp B/P Pulse Ox O2 Delivery O2 Flow Rate FiO2 04/08/16 07:43 97.5 87 17 117/72 100 Room Air 97.5 Labs Labs Laboratory Tests Test 04/06/16 09:55 04/06/16 12:20 04/06/16 13:55 04/06/16 17:20 White Blood Count 8.0x10^3/uL (4.0-11.0) Red Blood Count 3.50x10^6/uL (3.50-5.40) Hemoglobin 11.4g/dL (12.0-15.5) Hematocrit 31.8% (36.0-47.0) Mean Corpuscular Volume 91fL (79-100) Mean Corpuscular Hemoglobin 33pg (25-35) Mean Corpuscular Hemoglobin Concent 36g/dL (31-37) Red Cell Distribution Width 13.3% (11.5-14.5) Platelet Count 288x10^3/uL (140-400) Neutrophils (%) (Auto) 72% (31-73) Lymphocytes (%) (Auto) 22% (24-48) Monocytes (%) (Auto) 6% (0-9) Eosinophils (%) (Auto) 1% (0-3) Basophils (%) (Auto) 0% (0-3) Neutrophils # (Auto) 5.7x10^3uL (1.8-7.7) Lymphocytes # (Auto) 1.7x10^3/uL (1.0-4.8) Monocytes # (Auto) 0.5x10^3/uL (0.0-1.1) Eosinophils # (Auto) 0.0x10^3/uL (0.0-0.7) Basophils # (Auto) 0.0x10^3/uL (0.0-0.2) Prothrombin Time 12.5SEC (11.7-14.0) Prothromb Time International Ratio 1.0 (0.8-1.1) Sodium Level 134mmol/L (136-145) 131mmol/L (136-145) Potassium Level 2.7mmol/L (3.5-5.1) 2.7mmol/L (3.5-5.1) Chloride Level 95mmol/L (98-107) 94mmol/L (98-107) Carbon Dioxide Level 29mmol/L (21-32) 27mmol/L (21-32) Anion Gap 10 (6-14) 16mmol/L (6-14) 10 (6-14) Blood Urea Nitrogen 13mg/dL (7-20) 14mg/dL (7-20) Creatinine 0.7mg/dL (0.6-1.0) 0.7mg/dL (0.6-1.0) Estimated GFR (Cockcroft-Gault) 90.9 90.9 Glucose Level 94mg/dL (70-99) 108mg/dL (70-99) 112mg/dL (70-99) Calcium Level 8.6mg/dL (8.5-10.1) 8.7mg/dL (8.5-10.1) Magnesium Level 1.9mg/dL (1.8-2.4) Total Bilirubin 0.2mg/dL (0.2-1.0) Direct Bilirubin 0.1mg/dL (0.0-0.2) Aspartate Amino Transf (AST/SGOT) 14U/L (15-37) Alanine Aminotransferase (ALT/SGPT) 21U/L (14-59) Alkaline Phosphatase 126U/L (46-116) Creatine Kinase 63U/L (26-192) Creatine Kinase MB (Mass) < 0.5ng/mL (0.0-3.6) Creatine Kinase MB Relative Index % (0-4) Troponin I Quantitative < 0.017ng/mL (0.000-0.055) MR-Hhn-K-Type Natriuretic Peptide 111pg/mL (0-124) Total Protein 6.0g/dL (6.4-8.2) Albumin 3.6g/dL (3.4-5.0) Lipase 91U/L (73-393) Bedside Hemoglobin 10.5g/dL (12-15) Bedside Hematocrit 31% (36-40) Bedside Sodium 128mmol/L (135-145) Bedside Potassium 2.5mmol/L (3.5-5.0) Bedside Chloride 90mmol/L (98-110) Bedside Total CO2 25mmol/L (23-32) Bedside Blood Urea Nitrogen 12mg/dL (8-26) Bedside Creatinine 0.7mg/dL (0.5-1.4) Bedside Ionized Calcium (Trace) 1.10mmol/L (1.13-1.32) Nasal Screen MRSA (PCR) Negative (Negative) Test 04/07/16 05:00 Sodium Level 134mmol/L (136-145) Potassium Level 3.5mmol/L (3.5-5.1) Chloride Level 98mmol/L (98-107) Carbon Dioxide Level 27mmol/L (21-32) Anion Gap 9 (6-14) Blood Urea Nitrogen 12mg/dL (7-20) Creatinine 0.7mg/dL (0.6-1.0) Estimated GFR (Cockcroft-Gault) 90.9 Glucose Level 81mg/dL (70-99) Calcium Level 8.3mg/dL (8.5-10.1) Total Bilirubin 0.2mg/dL (0.2-1.0) Direct Bilirubin 0.1mg/dL (0.0-0.2) Aspartate Amino Transf (AST/SGOT) 12U/L (15-37) Alanine Aminotransferase (ALT/SGPT) 20U/L (14-59) Alkaline Phosphatase 105U/L (46-116) Troponin I Quantitative < 0.017ng/mL (0.000-0.055) Total Protein 5.5g/dL (6.4-8.2) Albumin 3.1g/dL (3.4-5.0) Phenytoin (Dilantin) Level 6.6mcg/mL (10.0-20.0) Phenytoin Last Dose Date 04/06/16 Phenytoin Last Dose Time 2100 Images Images US reviewed Assessment/Plan Assessment/Plan Symptomatic cholelithiasis Obesity, BMI 32 HTN, seizures plan lap alfredo, NPO VIC CHRISTIAN MD 04/08/16 1140: CONSULT Allergies Allergies: Coded Allergies: horseradish (Verified Allergy, Severe, Anaphylaxis, 04/06/16) mushroom (Verified Allergy, Severe, Anaphylaxis, 04/06/16) Assessment/Plan Assessment/Plan Pt seen and examined. Agree with Ms. Butler's note Pt with multiple episodes RUQ pain imaging c/w cholelithiasis TO OR for lap alfredo with grams R/B/A d/w pt Thanks for consult! FRANNIE BUTLER APRN Apr 08, 2016 08:06 VIC CHRISTIAN MD Apr 08, 2016 11:40
[2016-04-08] MEDS: TOPIRAMATE 100 MG TABLET. PO SCH ×2 (08:38→21:26)
[2016-04-08] MEDS: OXCARBAZEPINE 300 MG TABLET. PO SCH ×2 (08:38→21:26)
[2016-04-08] MEDS: TRIAMTERENE/HCTZ 37.5/25MG TABLET. PO SCH ×2 (08:38→21:00)
[2016-04-08] MEDS ORDERED: IOHEXOL 300 MG/ML 50 ML VIAL. ONE (09:58)
[2016-04-08] MEDS ORDERED: HEPARIN for IV BOLUS 10,000 UNIT/10 ML VIAL. ONE (09:58)
[2016-04-08] MEDS ORDERED: BUPIVAC MPF-EPI 0.5%-1:200000 30 ML VIAL. ONE (09:58)
[2016-04-08] MEDS ORDERED: SURGICEL HEMOSTAT 2X3 EACH. ONE (09:58)
[2016-04-08] MEDS ORDERED: BISACODYL 10 MG SUPP.RECT ONE (09:59)
[2016-04-08] MEDS ORDERED: IV RINGERS,LACTATED 1000ML 1,000 ML IV SCH (10:11)
[2016-04-08] MEDS ORDERED: LIDOCAINE 1% 1 ML SYRINGE. ID PRN (10:15)
[2016-04-08] MEDS ORDERED: MORPHINE SULFATE 2 MG/ML DISP.SYRIN. IV PRN (10:15)
[2016-04-08] MEDS ORDERED: ONDANSETRON PF 4 MG/2 ML VIAL. IV PRN ×2 (10:15→13:00)
[2016-04-08] MEDS ORDERED: FENTANYL PF 100 MCG/2 ML VIAL. IV PRN (10:15)
[2016-04-08] MEDS ORDERED: PROCHLORPERAZINE 10 MG/2 ML VIAL. IV PRN (10:15)
[2016-04-08] MEDS ORDERED: ROCURONIUM 50 MG/5 ML VIAL. ONE ×2 (11:27→12:16)
[2016-04-08] MEDS ORDERED: FENTANYL PF 250 MCG/5 ML VIAL. ONE (11:27)
--- NOTE | 2016-04-08 11:36 | PDOC ---
PROGRESS NOTES Chief Complaint Chief Complaint Chest pain Epigastric pain ASSESSMENT AND PLAN: 1. CP: noncardiac. with neg W/U 2. epigastric/RUQ pain: US with cholelithiasis, + Mata's. scheduled for CCY today 4. Hypokalemia: resolving. monitor closely, replete as indicated. hold lasix for now 4. Dispo: prob D/C in AM Vitals Vitals Vital Signs Date Time Temp Pulse Resp B/P Pulse Ox O2 Delivery O2 Flow Rate FiO2 04/08/16 11:06 97.7 96 16 106/72 98 Room Air 97.7 Physical Exam General: Alert, Oriented X3, Cooperative, No acute distress Heart: Regular rate Lungs: Clear Abdomen: Soft, Other (ND, RUQ and epigastric tenderness ) Extremities: No clubbing, No cyanosis Skin: No rashes, No breakdown Review of Systems Review of Systems doing ok. sl anxious TORIBIO PAZ MD Apr 08, 2016 11:36
[2016-04-08] MEDS ORDERED: EPHEDRINE PF IN SALINE 50 MG/5 ML DISP.SYRIN. IV ONE (11:51)
--- NOTE | 2016-04-08 12:32 | RAD ---
Intraoperative cholangiogram, 04/08/2016: History: Cholecystectomy 2 spot films from surgery are presented for review. Contrast has been injected into the cystic duct remnant. 0.12 minutes of fluoroscopy time was utilized. There is good flow of contrast into the duodenum at the ampulla. The common bile duct is of normal caliber. No filling defect is seen to suggest a retained stone. The incompletely opacified intrahepatic ducts are unremarkable. No contrast extravasation is seen. IMPRESSION: No significant abnormality is detected.
[2016-04-08] MEDS ORDERED: GLYCOPYRROLATE 1 MG/5 ML VIAL. ONE (12:33)
[2016-04-08] MEDS ORDERED: PROPOFOL 20 ML IV ONE (12:34)
[2016-04-08] MEDS ORDERED: SEVOFLURANE 61 TO 120 MINUTES. IH ONE (12:34)
[2016-04-08] MEDS ORDERED: LIDOCAINE 2% 100 MG/5 ML DISP.SYRIN. ONE (12:34)
[2016-04-08] MEDS ORDERED: DEXAMETHASONE SOD PHOS 20 MG/5 ML VIAL. ONE (12:34)
[2016-04-08] MEDS ORDERED: ONDANSETRON PF 4 MG/2 ML VIAL. ONE (12:34)
[2016-04-08] MEDS ORDERED: NEOSTIGMINE METHYLSULFATE 5 MG/5 ML SYRINGE. ONE (12:34)
[2016-04-08] MEDS: IV RINGERS,LACTATED 1000ML 1,000 ML IV SCH ×2 (12:51→23:57)
--- NOTE | 2016-04-08 12:57 | PDOC ---
BRIEF OPERATIVE NOTE Pre-Op Diagnosis Symptomatic cholelithiasis Post-Op Diagnosis same Procedure Performed Lap alfredo with grams Surgeon Bob Anesthesia Type: General, Local Blood Loss 50 IV Fluid 1200 Specimens Obtained GB Findings wnl IOC Complications none Additional Remarks [id number] VIC CHRISTIAN MD Apr 08, 2016 12:57
[2016-04-08] MEDS ORDERED: DEXTROSE 50% 25 GM / 50ML DISP.SYRIN. IV PRN (13:00)
[2016-04-08] MEDS ORDERED: 0.9 % SODIUM CHLORIDE 10 ML DISP.SYRIN. IV PRN (13:00)
[2016-04-08] MEDS ORDERED: KETOROLAC TROMETHAMINE 30 MG/ML SYRINGE. IV PRN (13:00)
[2016-04-08] MEDS: FENTANYL PF 100 MCG/2 ML VIAL. IV PRN ×4 (13:18→13:39)
[2016-04-08] MEDS: HYDROMORPHONE 2 MG/ML VIAL. IV PRN ×2 (13:58→14:08)
--- NOTE | 2016-04-08 17:52 | OP ---
DATE OF SURGERY: 04/08/2016 REFERRING PHYSICIAN: Dr. Toribio Bender. PREOPERATIVE DIAGNOSIS: Symptomatic cholelithiasis. POSTOPERATIVE DIAGNOSIS: Symptomatic cholelithiasis. PROCEDURES: Laparoscopic cholecystectomy with intraoperative cholangiogram. SURGEON: Charlie Christian MD ESTIMATED BLOOD LOSS: 10. FLUIDS: 1200 mL. COMPLICATIONS: None. FINDINGS: Distended gallbladder, gallstones, normal appearing intraoperative cholangiogram and Fdcm-Vqsv-[id number] adhesions. INDICATIONS: A 45-year-old female presents with complaints of epigastric right upper quadrant abdominal pain. Imaging was concerning for symptomatic cholelithiasis. Subsequently, it was felt patient best be served by laparoscopic cholecystectomy with intraoperative cholangiogram. The patient was informed of the risks, benefits, alternatives to procedure, risks including but not limited to bleeding, infection, damage to surrounding structures, risk of anesthesia, risk of an open procedure, patient appears to understand and their insightful questions were answered and she agrees to proceed. DESCRIPTION OF PROCEDURE: After obtaining informed consent, the patient was taken to the operating room, induced under general endotracheal anesthetic. The patient was prepped and draped in usual fashion in the anterior abdominal wall. Marcaine 0.5% with epinephrine was injected in the supraumbilical area and incision was made using 15 blade scalpel. A 5 mm nonbladed trocar was introduced in the abdominal cavity under direct vision of laparoscope. Pneumoperitoneum was established. Additional 12 port was placed in the epigastrium, another 5 mm port was placed in the right upper quadrant, all under direct vision of the laparoscope. The abdominal cavity was explored. The patient was obese, making the procedure somewhat difficult. The visualized portion of viscera normal in appearance. There was no evidence of trocar injury or Tkog-Guhd-Gtykht adhesions above the liver. These were taken down using sharp dissection. Gallbladder was noted to be somewhat distended and it was grasped. The peritoneum overlying the cystic duct was taken down using blunt dissection. Circumferential dissection was performed of the cystic duct at cystic duct infundibulum junction. Critical view was obtained. This demonstrated cystic duct and cystic artery as the only structures going to the gallbladder. Clips were placed on cystic artery and clip was placed on the cystic duct infundibulum junction. Incision was made in the cystic duct using EndoShears. Cholangiogram catheter was introduced and cholangiogram was obtained. Cholangiogram demonstrated normal appearing hepatic ducts, normal appearing common bile free extravasation into the duodenum. Cholangiogram catheter was removed. Multiple clips were placed on the cystic duct stump including Hem-o-Martina and the cystic duct was divided. Gallbladder was taken off the gallbladder fossa sharply using electrocautery. The gallbladder was placed in EndoCatch bag and brought out through the epigastric port and passed off the field, and sent to pathology for evaluation. The abdominal cavity was copiously irrigated with normal saline solution. There was no evidence of bleeding or other pathology at the time of closure. All ports removed under direct vision of laparoscope. There was no evidence of port site bleeding. Fascial defect in the epigastrium were reapproximated using interrupted 0 Vicryl stitch using Endo Close. All skin incisions were reapproximated with multiple interrupted 4-0 Monocryl in subcuticular fashion. Sterile dressing was placed over all wounds. The patient tolerated procedure well and was discharged to recovery room in stable condition. All counts correct. There were no immediate complications. CHARLIE CHRISTIAN MD DR: ARPAN/nts JOB#: [id number] / [id number] TORIBIO Bonner MD
[2016-04-08] MEDS: HYDROCODONE/APAP 5/325MG TABLET. PO PRN (18:04)
[2016-04-08] MEDS: PHENYTOIN SODIUM EXTENDED 100 MG CAPSULE PO SCH (21:26)
[2016-04-08] MEDS: MONTELUKAST SODIUM 10 MG TABLET. PO SCH (21:26)
[2016-04-08] MEDS: DOCUSATE SODIUM 100 MG CAPSULE PO SCH (21:26)
[2016-04-09 03:00] VITALS: BP 109/66
[2016-04-09 05:22] LABS: BASO % 0 % (0-3); EOS % 0 % (0-3); HEMATOCRIT 30.5 % (36.0-47.0); HEMOGLOBIN 10.8 g/dL (12.0-15.5); LYMPH # 1.2 x10^3/uL (1.0-4.8); LYMPH % 10 % (24-48); MEAN CORPUSCULAR HEMOGLOBIN 32 pg (25-35); MEAN CORPUSCULAR HGB CONC 36 g/dL (31-37); MEAN CORPUSCULAR VOLUME 91 fL (79-100); MONO % 6 % (0-9); NEUT % 85 % (31-73); PLATELET COUNT 258 x10^3/uL (140-400); RED BLOOD COUNT 3.34 x10^6/uL (3.50-5.40); RED CELL DISTRIBUTION WIDTH 13.1 % (11.5-14.5); WHITE BLOOD COUNT 12.1 x10^3/uL (4.0-11.0)
[2016-04-09 05:45] LABS: ALBUMIN 2.9 g/dL (3.4-5.0); ALBUMIN/GLOBULIN RATIO 1.3 (1.0-1.7); CALCIUM 8.5 mg/dL (8.5-10.1); CREATININE 0.7 mg/dL (0.6-1.0); GFR 90.9; TOTAL BILIRUBIN 0.3 mg/dL (0.2-1.0); TOTAL PROTEIN 5.2 g/dL (6.4-8.2)
[2016-04-09 05:49] LABS: POTASSIUM 2.8 mmol/L (3.5-5.1)
[2016-04-09] MEDS ORDERED: POTASSIUM CHLORIDE 20 MEQ TABLET.ER. PO ONE ×2 (06:00→13:15)
[2016-04-09] MEDS ORDERED: POTASSIUM CHLORIDE 20MEQ 50 ML IV ONE (06:00)
[2016-04-09] MEDS: POTASSIUM CHLORIDE 10MEQ 100 ML IV SCH ×2 (06:33→07:15)
[2016-04-09 07:00] VITALS: BP 131/71
[2016-04-09] MEDS: POTASSIUM CHLORIDE 20 MEQ TABLET.ER. PO SCH (08:00)
[2016-04-09] MEDS: IV RINGERS,LACTATED 1000ML 1,000 ML IV SCH (08:51)
--- NOTE | 2016-04-09 08:59 | PDOC ---
SURGICAL PROGRESS NOTE Subjective tolerating diet some pain postop, right chest Vital Signs Vital Signs Date Time Temp Pulse Resp B/P Pulse Ox O2 Delivery O2 Flow Rate FiO2 04/09/16 07:00 97.9 79 20 131/71 99 Room Air 97.9 04/08/16 23:00 3.0 I&O Intake and Output 04/09/16 07:00 Intake Total 1750 ml Output Total 425 ml Balance 1325 ml Intake Oral 1000 ml IV Total 750 ml Output Urine Total 400 ml Estimated Blood Loss 25 ml # Voids 2 General: Alert, Oriented X3, Cooperative, No acute distress Abdomen: Soft, Other (lap site dressings dry ) Labs Laboratory Tests Test 04/09/16 04:00 04/09/16 04:40 Magnesium Level 1.6mg/dL (1.8-2.4) White Blood Count 12.1x10^3/uL (4.0-11.0) Red Blood Count 3.34x10^6/uL (3.50-5.40) Hemoglobin 10.8g/dL (12.0-15.5) Hematocrit 30.5% (36.0-47.0) Mean Corpuscular Volume 91fL (79-100) Mean Corpuscular Hemoglobin 32pg (25-35) Mean Corpuscular Hemoglobin Concent 36g/dL (31-37) Red Cell Distribution Width 13.1% (11.5-14.5) Platelet Count 258x10^3/uL (140-400) Neutrophils (%) (Auto) 85% (31-73) Lymphocytes (%) (Auto) 10% (24-48) Monocytes (%) (Auto) 6% (0-9) Eosinophils (%) (Auto) 0% (0-3) Basophils (%) (Auto) 0% (0-3) Neutrophils # (Auto) 10.2x10^3uL (1.8-7.7) Lymphocytes # (Auto) 1.2x10^3/uL (1.0-4.8) Monocytes # (Auto) 0.7x10^3/uL (0.0-1.1) Eosinophils # (Auto) 0.0x10^3/uL (0.0-0.7) Basophils # (Auto) 0.0x10^3/uL (0.0-0.2) Sodium Level 131mmol/L (136-145) Potassium Level 2.8mmol/L (3.5-5.1) Chloride Level 96mmol/L (98-107) Carbon Dioxide Level 25mmol/L (21-32) Anion Gap 10 (6-14) Blood Urea Nitrogen 10mg/dL (7-20) Creatinine 0.7mg/dL (0.6-1.0) Estimated GFR (Cockcroft-Gault) 90.9 BUN/Creatinine Ratio 14 (6-20) Glucose Level 96mg/dL (70-99) Calcium Level 8.5mg/dL (8.5-10.1) Total Bilirubin 0.3mg/dL (0.2-1.0) Aspartate Amino Transf (AST/SGOT) 45U/L (15-37) Alanine Aminotransferase (ALT/SGPT) 59U/L (14-59) Alkaline Phosphatase 119U/L (46-116) Total Protein 5.2g/dL (6.4-8.2) Albumin 2.9g/dL (3.4-5.0) Albumin/Globulin Ratio 1.3 (1.0-1.7) Laboratory Tests Test 04/09/16 04:00 04/09/16 04:40 Magnesium Level 1.6mg/dL (1.8-2.4) White Blood Count 12.1x10^3/uL (4.0-11.0) Red Blood Count 3.34x10^6/uL (3.50-5.40) Hemoglobin 10.8g/dL (12.0-15.5) Hematocrit 30.5% (36.0-47.0) Mean Corpuscular Volume 91fL (79-100) Mean Corpuscular Hemoglobin 32pg (25-35) Mean Corpuscular Hemoglobin Concent 36g/dL (31-37) Red Cell Distribution Width 13.1% (11.5-14.5) Platelet Count 258x10^3/uL (140-400) Neutrophils (%) (Auto) 85% (31-73) Lymphocytes (%) (Auto) 10% (24-48) Monocytes (%) (Auto) 6% (0-9) Eosinophils (%) (Auto) 0% (0-3) Basophils (%) (Auto) 0% (0-3) Neutrophils # (Auto) 10.2x10^3uL (1.8-7.7) Lymphocytes # (Auto) 1.2x10^3/uL (1.0-4.8) Monocytes # (Auto) 0.7x10^3/uL (0.0-1.1) Eosinophils # (Auto) 0.0x10^3/uL (0.0-0.7) Basophils # (Auto) 0.0x10^3/uL (0.0-0.2) Sodium Level 131mmol/L (136-145) Potassium Level 2.8mmol/L (3.5-5.1) Chloride Level 96mmol/L (98-107) Carbon Dioxide Level 25mmol/L (21-32) Anion Gap 10 (6-14) Blood Urea Nitrogen 10mg/dL (7-20) Creatinine 0.7mg/dL (0.6-1.0) Estimated GFR (Cockcroft-Gault) 90.9 BUN/Creatinine Ratio 14 (6-20) Glucose Level 96mg/dL (70-99) Calcium Level 8.5mg/dL (8.5-10.1) Total Bilirubin 0.3mg/dL (0.2-1.0) Aspartate Amino Transf (AST/SGOT) 45U/L (15-37) Alanine Aminotransferase (ALT/SGPT) 59U/L (14-59) Alkaline Phosphatase 119U/L (46-116) Total Protein 5.2g/dL (6.4-8.2) Albumin 2.9g/dL (3.4-5.0) Albumin/Globulin Ratio 1.3 (1.0-1.7) Problem List Problems Medical Problems: (1) Chest pain Status: Acute (2) Hypokalemia Status: Acute (3) Low blood potassium Status: Acute (4) Symptomatic cholelithiasis Status: Acute Assessment/Plan s/p lap alfredo hypokalemia-replaced dc when medically stable Problems: FRANNIE BUTLER APRN Apr 09, 2016 08:59
[2016-04-09] MEDS: OXCARBAZEPINE 300 MG TABLET. PO SCH (09:41)
[2016-04-09] MEDS: TRIAMTERENE/HCTZ 37.5/25MG TABLET. PO SCH (09:41)
[2016-04-09] MEDS: DOCUSATE SODIUM 100 MG CAPSULE PO SCH (09:41)
[2016-04-09] MEDS: TOPIRAMATE 100 MG TABLET. PO SCH (09:41)
[2016-04-09] MEDS: HYDROCODONE/APAP 5/325MG TABLET. PO PRN ×2 (09:46→15:56)
[2016-04-09 11:00] VITALS: BP 112/64
--- NOTE | 2016-04-09 13:06 | PDOC3 ---
Discharge Summary Visit Information Date of Admission: Apr 06, 2016 Date of Discharge: Apr 09, 2016 Admitting Diagnosis Comment: s/p lap alfredo Hypokalemia Final Diagnosis Problems Medical Problems: (1) Chest pain Status: Acute (2) Hypokalemia Status: Acute (3) Low blood potassium Status: Acute (4) Symptomatic cholelithiasis Status: Acute Surgical Problems: (1) S/P laparoscopic cholecystectomy Status: Acute Brief Hospital Course Allergies Allergies Coded Allergies Type Severity Reaction Last Updated Verified horseradish Allergy Severe Anaphylaxis 04/06/16 Yes mushroom Allergy Severe Anaphylaxis 04/06/16 Yes Vital Signs Vital Signs Date Time Temp Pulse Resp B/P Pulse Ox O2 Delivery O2 Flow Rate FiO2 04/09/16 11:00 98.5 66 18 112/64 99 Room Air 98.5 04/09/16 09:46 3.0 Lab Results Laboratory Tests Test 04/09/16 04:00 04/09/16 04:40 04/09/16 11:55 Magnesium Level 1.6mg/dL (1.8-2.4) White Blood Count 12.1x10^3/uL (4.0-11.0) Red Blood Count 3.34x10^6/uL (3.50-5.40) Hemoglobin 10.8g/dL (12.0-15.5) Hematocrit 30.5% (36.0-47.0) Mean Corpuscular Volume 91fL (79-100) Mean Corpuscular Hemoglobin 32pg (25-35) Mean Corpuscular Hemoglobin Concent 36g/dL (31-37) Red Cell Distribution Width 13.1% (11.5-14.5) Platelet Count 258x10^3/uL (140-400) Neutrophils (%) (Auto) 85% (31-73) Lymphocytes (%) (Auto) 10% (24-48) Monocytes (%) (Auto) 6% (0-9) Eosinophils (%) (Auto) 0% (0-3) Basophils (%) (Auto) 0% (0-3) Neutrophils # (Auto) 10.2x10^3uL (1.8-7.7) Lymphocytes # (Auto) 1.2x10^3/uL (1.0-4.8) Monocytes # (Auto) 0.7x10^3/uL (0.0-1.1) Eosinophils # (Auto) 0.0x10^3/uL (0.0-0.7) Basophils # (Auto) 0.0x10^3/uL (0.0-0.2) Sodium Level 131mmol/L (136-145) Potassium Level 2.8mmol/L (3.5-5.1) 3.2mmol/L (3.5-5.1) Chloride Level 96mmol/L (98-107) Carbon Dioxide Level 25mmol/L (21-32) Anion Gap 10 (6-14) Blood Urea Nitrogen 10mg/dL (7-20) Creatinine 0.7mg/dL (0.6-1.0) Estimated GFR (Cockcroft-Gault) 90.9 BUN/Creatinine Ratio 14 (6-20) Glucose Level 96mg/dL (70-99) Calcium Level 8.5mg/dL (8.5-10.1) Total Bilirubin 0.3mg/dL (0.2-1.0) Aspartate Amino Transf (AST/SGOT) 45U/L (15-37) Alanine Aminotransferase (ALT/SGPT) 59U/L (14-59) Alkaline Phosphatase 119U/L (46-116) Total Protein 5.2g/dL (6.4-8.2) Albumin 2.9g/dL (3.4-5.0) Albumin/Globulin Ratio 1.3 (1.0-1.7) Laboratory Tests Test 04/09/16 04:00 04/09/16 04:40 04/09/16 11:55 Magnesium Level 1.6mg/dL (1.8-2.4) White Blood Count 12.1x10^3/uL (4.0-11.0) Red Blood Count 3.34x10^6/uL (3.50-5.40) Hemoglobin 10.8g/dL (12.0-15.5) Hematocrit 30.5% (36.0-47.0) Mean Corpuscular Volume 91fL (79-100) Mean Corpuscular Hemoglobin 32pg (25-35) Mean Corpuscular Hemoglobin Concent 36g/dL (31-37) Red Cell Distribution Width 13.1% (11.5-14.5) Platelet Count 258x10^3/uL (140-400) Neutrophils (%) (Auto) 85% (31-73) Lymphocytes (%) (Auto) 10% (24-48) Monocytes (%) (Auto) 6% (0-9) Eosinophils (%) (Auto) 0% (0-3) Basophils (%) (Auto) 0% (0-3) Neutrophils # (Auto) 10.2x10^3uL (1.8-7.7) Lymphocytes # (Auto) 1.2x10^3/uL (1.0-4.8) Monocytes # (Auto) 0.7x10^3/uL (0.0-1.1) Eosinophils # (Auto) 0.0x10^3/uL (0.0-0.7) Basophils # (Auto) 0.0x10^3/uL (0.0-0.2) Sodium Level 131mmol/L (136-145) Potassium Level 2.8mmol/L (3.5-5.1) 3.2mmol/L (3.5-5.1) Chloride Level 96mmol/L (98-107) Carbon Dioxide Level 25mmol/L (21-32) Anion Gap 10 (6-14) Blood Urea Nitrogen 10mg/dL (7-20) Creatinine 0.7mg/dL (0.6-1.0) Estimated GFR (Cockcroft-Gault) 90.9 BUN/Creatinine Ratio 14 (6-20) Glucose Level 96mg/dL (70-99) Calcium Level 8.5mg/dL (8.5-10.1) Total Bilirubin 0.3mg/dL (0.2-1.0) Aspartate Amino Transf (AST/SGOT) 45U/L (15-37) Alanine Aminotransferase (ALT/SGPT) 59U/L (14-59) Alkaline Phosphatase 119U/L (46-116) Total Protein 5.2g/dL (6.4-8.2) Albumin 2.9g/dL (3.4-5.0) Albumin/Globulin Ratio 1.3 (1.0-1.7) Brief Hospital Course Ms. Tejeda is a 45 old inmate admitted for abd pain found to have alfredo, underwent lap alfredo, COurse remarkaable for persistent hypokAlemia, needing replacement almost on a daily basis,. To be dcd backt o alf on PO Kcl with 2 weeks ff up GS Dw pt and guards dispO; alf Proc: mandy fuentes Consults: Discharge Information Condition at Discharge: Improved, Stable Follow Up: Weeks (2 weeks ) Disposition/Orders: Other (alf) Scheduled Furosemide (Furosemide) 20 MG PO DAILY (Reported) Montelukast Sodium (Montelukast Sodium Tablet) 10 MG PO HS (Reported) Oxcarbazepine (Oxcarbazepine) 1 TAB PO BID (Reported) Phenytoin Sodium Extended (Dilantin) 4 CAP PO HS (Reported) Potassium Chloride (Klor-Con M20) 20 MEQ PO DAILY (Reported) Topiramate (Topiramate) 2 TAB PO BID (Reported) Triamterene/Hydrochlorothiazid (Triamterene-Hctz 37.5-25 Mg Cp) 1 CAP PO BID ( Reported) FAROOQ JAMISON MD Apr 09, 2016 13:06
[2016-04-09 15:00] VITALS: BP 92/55
--- NOTE | 2016-04-10 16:35 | PATHOLOGY ---
PATHOLOGY REPORT * * * * * * * * FINAL DIAGNOSIS: Gallbladder, laparoscopic cholecystectomy: - Cholelithiasis. - Cholesterolosis. - Chronic cholecystitis. COMMENT: There is no evidence of malignancy. (KASSIDYM:; d/t: 04/10/16) REPORT ELECTRONICALLY SIGNED BY: Elijah Pham M.D. DATE/TIME: 04/10/2016 16:35 * * * * * * * * GROSS PATHOLOGY: Received in formalin labeled "Alexus Purcell gallbladder," is a 8.5 x 3.7 x 2.8 cm, intact gallbladder with pink-raines raines serosal surfaces. Opening the gallbladder reveals a velvety, bile-stained mucosa with moderate, diffuse cholesterolosis and an average wall thickness of 0.1 cm. A single calculus is present displaying a yellow-newton and granular appearance, and no masses are noted grossly. Art Instructor sections from the body and fundus are submitted along with the proximal margin in cassette A1. (CAA; 04/09/2016) INITIAL CPT CODE(S): A; 21201 Professional services performed [place] [facility] [place] [address] Technical services performed by [facility] [employer] at [address] [place] [address]. Rae fax: SPECIMEN(S) RECEIVED: A.Gallbladder CLINICAL HISTORY: Symptomatic cholelithiasis PATIENT: ALEXUS PURCELL /AGE: 6 1970 (Age: 45) PATIENT #: [id number] ALT CASE #: SPECIMEN COLLECTION DATE: 04/08/2016 SPECIMEN RECEIVED DATE: 04/09/2016 [facility] - [id number] [place] [address] - PHONE: [phone] * * * END OF REPORT * * *
== END 2016-04-09 15:38 | DRG 418 ==
LOC: ER 08:32 → EEVIPCON 08:32 → 6 SOUTH 14:35
PROVIDERS: ADMIT Internal Medicine Hematology & Oncology; ATTEND Internal Medicine Hematology & Oncology
PROC: BF131ZZ Fluoroscopy of Gallbladder and Bile Ducts using Low Osmolar Contrast (ICD-10-PCS; 2016-04-08)
PROC: 0FT44ZZ Resection of Gallbladder, Percutaneous Endoscopic Approach (ICD-10-PCS; principal; 2016-04-08 12:00)
DX: K80.10 Calculus of gallbladder with chronic cholecystitis without obstruction (principal); E44.1 Mild protein-calorie malnutrition; E87.6 Hypokalemia; E66.9 Obesity, unspecified; M79.89 Other specified soft tissue disorders; G40.909 Epilepsy, unspecified, not intractable, without status epilepticus; I10 Essential (primary) hypertension; K58.9 Irritable bowel syndrome, unspecified; K82.8 Other specified diseases of gallbladder; Z68.32 Body mass index [BMI] 32.0-32.9, adult; Z82.49 Family history of ischemic heart disease and other diseases of the circulatory system; Z91.018 Allergy to other foods; Z90.710 Acquired absence of both cervix and uterus; Z90.49 Acquired absence of other specified parts of digestive tract
CPT/HCPCS: 36415; 71010; 74300; 76705; 80047; 80048; 80053; 80076; 80185; 82553; 83690; 83735; 83880; 84132; 84484; 85027; 85610; 87641; 88304; 93005; C1782; J0690; J0780; J1100; J1170; J1885; J2405; J2704; J2710; J3010; J3480; J3490; J7120; Q9967; 99285-25

== ENCOUNTER 2016-04-14 01:16 | Emergency (ER) | payer OTHER ==
[~2016-04-14] VITALS: Ht 165.1 cm; Wt 88.5 kg
[~2016-04-14 01:16] MED LIST: FURO20TA3 PO; MONT10TA9 PO; OXCA300T PO; PHEN100C PO; POTA20TA4 PO; Phenytoin; TOPI100T90 PO; TRIA1CAP3 PO; [UNRECOGNIZED DRUG - CODE]
[2016-04-14] MEDS ORDERED: ONDANSETRON PF 4 MG/2 ML VIAL. IV ONE (02:00)
[2016-04-14] MEDS ORDERED: KETOROLAC TROMETHAMINE 30 MG/ML SYRINGE. IV ONE (02:00)
[2016-04-14] MEDS ORDERED: HYDROMORPHONE 2 MG/ML VIAL. IV ONE (02:00)
[2016-04-14] MEDS ORDERED: IV NORMAL SALINE 1000ML BAG 1,000 ML IV SCH (02:00)
[2016-04-14 02:01] LABS: BASO # 0.1 x10^3/uL (0.0-0.2); BASO % 1 % (0-3); EOS % 6 % (0-3); HEMOGLOBIN 11.4 g/dL (12.0-15.5); LYMPH % 33 % (24-48); MEAN CORPUSCULAR HEMOGLOBIN 33 pg (25-35); MEAN CORPUSCULAR HGB CONC 35 g/dL (31-37); MEAN CORPUSCULAR VOLUME 94 fL (79-100); MONO % 6 % (0-9); NEUT % 54 % (31-73); PLATELET COUNT 296 x10^3/uL (140-400); RED BLOOD COUNT 3.51 x10^6/uL (3.50-5.40); RED CELL DISTRIBUTION WIDTH 13.1 % (11.5-14.5)
[2016-04-14 02:28] LABS: ALBUMIN 3.7 g/dL (3.4-5.0); ALBUMIN/GLOBULIN RATIO 1.4 (1.0-1.7); CALCIUM 8.8 mg/dL (8.5-10.1); CREATININE 0.7 mg/dL (0.6-1.0); GFR 90.9; TOTAL BILIRUBIN 0.2 mg/dL (0.2-1.0); TOTAL PROTEIN 6.4 g/dL (6.4-8.2)
[2016-04-14 02:29] LABS: POTASSIUM 2.8 mmol/L (3.5-5.1)
[2016-04-14 02:35] LABS: BILIRUBIN,URINE NEGATIVE (NEG); GLUCOSE,URINE NEGATIVE (NEG); NITRITE,URINE NEGATIVE (NEG); PROTEIN,URINE NEGATIVE (NEG-TRACE); UROBILINOGEN,URINE 0.2 mg/dL (0.2 mg/dL)
[2016-04-14 02:36] LABS: BACTERIA,URINE FEW /HPF (0-FEW); RBC,URINE 0 /HPF (0-2); SQUAMOUS EPITHELIAL CELL,UR MOD /LPF; WBC,URINE OCC /HPF (0-4)
[2016-04-14 03:00] VITALS: BP 94/59
[2016-04-14] MEDS ORDERED: POTASSIUM CHLORIDE 20 MEQ TABLET.ER. PO ONE (03:15)
--- NOTE | 2016-04-14 03:20 | PHYS DOC ---
Past Medical History Past Medical History: Anemia, Diverticulitis, Hypertension, IBS, Ovarian Cyst, Seizure, Other Additional Past Medical Histor: Umbilical hernia,Plantar facilitis, Degenerative disk disease. Past Surgical History: Appendectomy, Cholecystectomy, Hysterectomy, Tonsillectomy, Other Additional Past Surgical Histo: L)knee for torn meniscus. Alcohol Use: Occasionally Drug Use: Cocaine Social History Narrative: STATES NO DRUG USE Adult General Chief Complaint Chief Complaint: CHEST PAIN HPI HPI Patient is a 45 year old female who presents here today complaining of right- sided chest pain. Patient reports she's had some shortness of breath associated with it. Patient reports that she recently had a cholecystectomy done last week by Dr. Mcclure here at [facility]. Patient reports that she's been having discomfort to her right side of her chest and abdomen since the procedure. Patient reports that today the pain is wors. Patient reports she's had nausea vomiting and diarrhea. Patient reports some tactile fevers. Patient has any dysuria frequency or urgency. Patient has any melena or bright red blood per rectum. Patient denies any hematuria. Patient denies any exertional component to the pain. Patient reports that the pain is sharp in nature and increases with inspiration. Patient denies any calf tenderness. Patient reports that she is very active currently. Patient has a history of hypertension. She is status post cholecystectomy, hysterectomy, appendicectomy, she has an enlarged liver. She has no known drug allergies. Patient's physical exam is significant for some mild diffuse tenderness to palpation to her abdomen greatest in the right upper quadrant as well as her right anterior chest wall. Patient reports that she is 100% reproducible tenderness when I palpate her right anterior chest wall. Patient's lungs were clear. No wheezing rales or rhonchi. Heart was regular rate and rhythm. No murmurs gallops or rubs. This is a 45-year-old female who presents here today secondary to reproducible anterior chest wall pain on the right side that's been persistent since her surgery however has been getting worse. Patient's ER workup has been unremarkable. Patient's EKG revealed normal sinus rhythm without any acute pathology. Patient's troponin labs were all negative. Patient currently is clinically and hemodynamically stable for discharged home. Patient reports she feels significantly improved after the medicines she was given while in the ER. Patient's potassium level was 2.8 and she was given an extra dose of potassium. Patient reports she is on 20 mg twice a day we will increase that to 40 mg twice a day. Review of Systems Review of Systems Constitutional Eyes: Denies change in visual acuity, redness, or eye pain [] All other review systems are negative except as documented in the history of present illness portion. Current Medications Current Medications Current Medications Medications (Trade) Dose Ordered Sig/Alexandra Start Time Stop Time Status Last Admin Dose Admin Hydromorphone HCl (Dilaudid) 0.5 mg 1X ONCE 04/14/16 02:00 04/14/16 02:01 DC 04/14/16 02:09 0.5 MG Ketorolac Tromethamine (Toradol) 30 mg 1X ONCE 04/14/16 02:00 04/14/16 02:01 DC 04/14/16 02:09 30 MG Ondansetron HCl (Zofran) 4 mg 1X ONCE 04/14/16 02:00 04/14/16 02:01 DC 04/14/16 02:08 4 MG Potassium Chloride (Klor-Con) 40 meq 1X ONCE 04/14/16 03:15 04/14/16 03:16 Sodium Chloride (Iv Sodium Chloride 0.9% 1000ml Bag) 1,000 ml @ 1,000 mls/hr Q1H 04/14/16 02:00 04/14/16 02:59 DC 04/14/16 02:08 1,000 MLS/HR Allergies Allergies Allergies Coded Allergies Type Severity Reaction Last Updated Verified horseradish Allergy Severe Anaphylaxis 04/06/16 Yes mushroom Allergy Severe Anaphylaxis 04/06/16 Yes Physical Exam Physical Exam Constitutional: Well developed, well nourished, no acute distress, non-toxic appearance. [] HENT: Normocephalic, atraumatic, bilateral external ears normal, oropharynx moist, no oral exudates, nose normal. [] Eyes: PERRLA, EOMI, conjunctiva normal, no discharge. [] Neck: Normal range of motion, no tenderness, supple, no stridor. [] Cardiovascular:Heart rate regular rhythm, no murmur [] Lungs & Thorax: Bilateral breath sounds clear to auscultation [] Abdomen: Bowel sounds normal, soft, no masses, no pulsatile masses. [] No rebound or guarding. Normoactive bowel sounds. No evidence of an acute surgical abdomen at this time. Skin: Warm, dry, no erythema, no rash. [] Back: No tenderness, no CVA tenderness. [] Extremities: No tenderness, no cyanosis, no clubbing, ROM intact, no edema. [] Neurologic: Alert and oriented X 3, normal motor function, normal sensory function, no focal deficits noted. [] Psychologic: Affect normal, judgement normal, mood normal. [] Current Patient Data Vital Signs Vital Signs Date Time Temp Pulse Resp B/P Pulse Ox O2 Delivery O2 Flow Rate FiO2 04/14/16 01:26 97.8 58 19 130/88 100 Room Air 97.8 Lab Values Laboratory Tests Test 04/14/16 01:28 04/14/16 02:00 White Blood Count 9.0x10^3/uL (4.0-11.0) Red Blood Count 3.51x10^6/uL (3.50-5.40) Hemoglobin 11.4g/dL (12.0-15.5) L Hematocrit 33.0% (36.0-47.0) L Mean Corpuscular Volume 94fL (79-100) Mean Corpuscular Hemoglobin 33pg (25-35) Mean Corpuscular Hemoglobin Concent 35g/dL (31-37) Red Cell Distribution Width 13.1% (11.5-14.5) Platelet Count 296x10^3/uL (140-400) Neutrophils (%) (Auto) 54% (31-73) Lymphocytes (%) (Auto) 33% (24-48) Monocytes (%) (Auto) 6% (0-9) Eosinophils (%) (Auto) 6% (0-3) H Basophils (%) (Auto) 1% (0-3) Neutrophils # (Auto) 4.9x10^3uL (1.8-7.7) Lymphocytes # (Auto) 3.0x10^3/uL (1.0-4.8) Monocytes # (Auto) 0.5x10^3/uL (0.0-1.1) Eosinophils # (Auto) 0.5x10^3/uL (0.0-0.7) Basophils # (Auto) 0.1x10^3/uL (0.0-0.2) Sodium Level 132mmol/L (136-145) L Potassium Level 2.8mmol/L (3.5-5.1) *L Chloride Level 93mmol/L (98-107) L Carbon Dioxide Level 27mmol/L (21-32) Anion Gap 12 (6-14) Blood Urea Nitrogen 11mg/dL (7-20) Creatinine 0.7mg/dL (0.6-1.0) Estimated GFR (Cockcroft-Gault) 90.9 BUN/Creatinine Ratio 16 (6-20) Glucose Level 87mg/dL (70-99) Calcium Level 8.8mg/dL (8.5-10.1) Total Bilirubin 0.2mg/dL (0.2-1.0) Aspartate Amino Transferase (AST) 17U/L (15-37) Alanine Aminotransferase (ALT) 35U/L (14-59) Alkaline Phosphatase 136U/L (46-116) H Troponin I Quantitative < 0.017ng/mL (0.000-0.055) Total Protein 6.4g/dL (6.4-8.2) Albumin 3.7g/dL (3.4-5.0) Albumin/Globulin Ratio 1.4 (1.0-1.7) Lipase 122U/L (73-393) Urine Collection Type Unknown Urine Color Yellow Urine Clarity Clear Urine pH 8.0 Urine Specific [place] 1.010 Urine Protein Negativemg/dL (NEG-TRACE) Urine Glucose (UA) Negativemg/dL (NEG) Urine Ketones (Stick) Negativemg/dL (NEG) Urine Blood Negative (NEG) Urine Nitrite Negative (NEG) Urine Bilirubin Negative (NEG) Urine Urobilinogen Dipstick 0.2mg/dL (0.2 mg/dL) Urine Leukocyte Esterase Negative (NEG) Urine RBC 0/HPF (0-2) Urine WBC Occ/HPF (0-4) Urine Squamous Epithelial Cells Mod/LPF Urine Bacteria Few/HPF (0-FEW) Urine Hyaline Casts Occasional/HPF Urine Mucus Slight/LPF Laboratory Tests 04/14/16 01:28 Laboratory Tests 04/14/16 01:28 EKG EKG [] Radiology/Procedures Radiology/Procedures [] Course & Med Decision Making Course & Med Decision Making Pertinent Labs and Imaging studies reviewed. (See chart for details) [] Dragon Disclaimer Dragon Disclaimer This electronic medical record was generated, in whole or in part, using a voice recognition dictation system. Departure Departure Impression: Primary Impression: Chest pain Additional Impressions: Hypokalemia S/P laparoscopic cholecystectomy Disposition: HOME, SELF-CARE Condition: IMPROVED Referrals: NO PCP (PCP) Patient Instructions: Chest Pain (Nonspecific), Hypokalemia Additional Instructions: Please increase her potassium to 40 mEq twice a day. Please have her potassium level checked in one week. Problem Qualifiers BEAN JARVIS MD Apr 14, 2016 03:20
--- NOTE | 2016-04-14 07:59 | RAD ---
Examination: Acute abdomen series History: History of epigastric pain. Comparison: None available Findings: The cardiomediastinal silhouette grossly appears unremarkable. There is no acute infiltrate or visualized pneumothorax identified. No evidence of free air noted under the hemidiaphragms. Feces and gas noted in the colon. Paucity of gas in the abdomen limits evaluation of small bowel. Impression: 1. Paucity of gas in the abdomen limits evaluation of small bowel. 2. Feces and gas noted in the colon. 3. No acute cardiopulmonary findings.
--- NOTE | 2016-04-14 11:47 | EKG ---
[facility] [address] [place] [address] Test Date: 2016-04-14 Test Time: 01:26:05 Pat Name: SU PURCELL Department: Room: Gender: F Environmental Engineering Technician: LINETTE : 1970 Requested By: BEAN JARVIS Order Number: [id number] Reading MD: Igor Regan Measurements Intervals [place] Rate: 58 P: 38 SC: 154 QRS: -7 QRSD: 102 T: 11 QT: 446 QTc: 442 Interpretive Statements SINUS RHYTHM LEFTWARD AXIS OTHERWISE NORMAL ECG RI6.01 Unconfirmed report Compared to ECG 04/06/2016 08:46:21 Prolonged QT interval no longer present Electronically Signed On 04-16-2016 14:01:41 REAL TIME OPERATOR by Igor Regan
== END 2016-04-14 03:39 | disposition home or self-care (01) ==
LOC: EEVIPCON 01:16 → ER 01:16
DX: R07.89 Other chest pain (principal); E87.6 Hypokalemia; I10 Essential (primary) hypertension; K58.9 Irritable bowel syndrome, unspecified; F14.10 Cocaine abuse, uncomplicated; Z87.19 Personal history of other diseases of the digestive system; Z90.710 Acquired absence of both cervix and uterus; Z91.018 Allergy to other foods
CPT/HCPCS: 36415; 74022; 80053; 81001; 83690; 84484; 85027; 93005; 96361; 96374; 96375; 99285; J1170; J1885; J2405; J7030

== ENCOUNTER → 2016-06-11 | Outpatient (CLI) | payer OTHER ==
--- NOTE | 2016-06-11 11:34 | KCIC ---
PROCEDURE MR of the right wrist HISTORY Right wrist pain at the radial aspect. Injury April 2016. Known fracture. COMPARISON None FINDINGS Intra-articular fracture of the radial styloid process at the distal radius. The fragment demonstrates mild anterior displacement measuring about 3 millimeters. Associated bone marrow edema. Small focal area of bone marrow edema or contusion at the distal and medial capitate. Triangular fibrocartilage is intact. Extensor carpi ulnaris tendon is intact. There is mild fluid signal around the 1st extensor compartment, and the 3rd compartment. No evidence of tendon disruption. The flexor tendons are intact. Median nerve unremarkable. No evidence of a significant joint effusion. Mild subcutaneous edema around the wrist. The scapholunate ligament demonstrates some mild signal compatible with degeneration but no evidence of a through and through tear. No evidence of a lunotriquetral ligament tear. IMPRESSION 1. Mildly displaced fracture of the radial styloid process. 2. Subchondral marrow contusion, versus nondisplaced fracture, at the distal and medial aspect of the capitate bone. 3. Mild fluid at the 1st and 3rd extensor compartments. No tendon disruption. Electronically signed by: Bryn Cao MD (June 11, 2016 11:33:45)
== END | disposition home or self-care (01) ==
LOC: KCIC MRI 08:03
PROVIDERS: ATTEND Nurse Practitioner
DX: M25.531 Pain in right wrist (principal)
CPT/HCPCS: 73221